=== PATIENT | male | born 1980 | race Hispanic/Latino ===

== ENCOUNTER 2019-09-14 17:13 | Emergency (ER) | payer OTHER, SELFPAY ==
[2019-09-14 17:39] VITALS: BP 120/78; PULSE 73; RESP 15; TEMP 36.4; O2SAT 99; BMI 27.1
--- NOTE | 2019-09-14 17:43 | DI.RAD.S_ITS ---
PROCEDURE: XR KNEE RT 3V INDICATIONS: atraumatic swelling right knee w/ swelling RLL TECHNIQUE: 3 views of the knee were acquired. COMPARISON: None. FINDINGS: Bones: No fractures or dislocations. No suspicious bony lesions. Mild narrowing of the medial joint space. Prominent prepatellar and superficial infrapatellar soft tissue swelling Soft tissues: No joint effusion. No suspicious soft tissue calcifications. IMPRESSION: Anterior soft tissue swelling. No fracture. If the patient's symptoms do not improve recommend followup radiographs in 10 days to assess for healing sclerosis/occult injury. Dictated by: Maninder Mcmahon M.D. on 09/14/2019 at 18:31 Approved by: Maninder Mcmahon M.D. on 09/14/2019 at 18:33
--- NOTE | 2019-09-14 18:07 | ED.EXTPRO ---
HPI - Extremity Problem General Chief complaint: Extremity Problem,Nontraumatic Stated complaint: RT LEG SWELLING Time Seen by Provider: 09/14/19 18:02 Source: patient Mode of arrival: Ambulatory Limitations: no limitations History of Present Illness HPI Narrative: 39-year-old male here for evaluation of pain in the front of his right knee. He states that at the end of last week he started noticing some redness and swelling and pain in the front portion of his right knee just below his kneecap on the right. No specific trauma. States that it did hurt for him to bend his knee. He did feel warm compared to the other side. States that his symptoms have improved somewhat since the onset. Related Data Previous Rx's Medication Instructions Recorded oxycodone-acetaminophen 5 mg-325 1 tab PO Q4-6H PRN #20 tab 03/18/18 mg tablet Allergies Allergy/AdvReac Type Severity Reaction Status Date / Time No Known Drug Allergies Allergy Verified 09/14/19 17:39 Review of Systems Constitutional Constitutional: Denies fever(s) Cardiovascular Cardiovascular: Denies chest pain and Denies dyspnea Respiratory Respiratory: Denies dyspnea Musculoskeletal Musculoskeletal: Denies tingling Comments: Right knee pain Integumentary/Breasts Comments: No redness around the right knee Neurologic Neurologic: Denies tingling and Denies paresthesias Hematologic/Lymphatic Hematologic/Lymphatic: Denies easy bleeding and Denies easy bruising Patient History Medical History History of removal of cyst (Resolved 09/2015) Surgical History No history of previous surgery (Resolved 09/21/15) Social History marital status: Smoking Status: Current every day smoker alcohol intake: current (1-2 A DAY ) Smoking Status: Current every day smoker alcohol intake frequency: 0-2 drinks per day Substance Use Type: does not use Exam Initial Vital Signs Initial Vital Signs: Vital Signs Temperature 97.6 F 09/14/19 17:39 Pulse Rate 73 09/14/19 17:39 Respiratory Rate 15 09/14/19 17:39 Blood Pressure 120/78 09/14/19 17:39 Pulse Oximetry 99 09/14/19 17:39 Const General: cooperative and comfortable Orientation: alert and oriented x3 Cardio Pulses: dorsalis pedis present on the right Skin Lesions: no lesions Rashes: no rashes Neuro General: alert and awake Cognition: normal cognition Speech: speech normal Gait: normal gait Extrem Other: Patient does have mild swelling over the inferior portion of the patella down to the tibial tuberosity. Also has some tenderness to palpation in this area. He is able to do a straight leg raise. Is able to flex and extend the knee. Right ankle is unremarkable. Right hip is under Psych Appearance: grossly normal and well kempt Course Orders Ordered: ED Orders 09/14/19 17:43 XR knee RT 3V Stat Vital Signs Vital signs: Vital Signs - 8 hr 09/14/19 17:39 Temperature 97.6 F Pulse Rate 73 Respiratory Rate 15 Blood Pressure 120/78 Pulse Oximetry 99 MDM - Extremity (Nontraumatic) Imaging Data XR knee: Radiologist's impression: [address] [address] XRay Report Signed Patient: Jese SánchezMR#: [id number] : 1980Acct:[id number] Age/Sex: 39 / MDate of Service: 09/14/19 Loc: ED Accession Number: [id number] Procedure: XR knee RT 3V Ordering Provider: Marjan Pardo D.O. PROCEDURE: XR KNEE RT 3V INDICATIONS: atraumatic swelling right knee w/ swelling RLL TECHNIQUE: 3 views of the knee were acquired. COMPARISON: None. FINDINGS: Bones: No fractures or dislocations. No suspicious bony lesions. Mild narrowing of the medial joint space. Prominent prepatellar and superficial infrapatellar soft tissue swelling Soft tissues: No joint effusion. No suspicious soft tissue calcifications. IMPRESSION: Anterior soft tissue swelling. No fracture. If the patient's symptoms do not improve recommend followup radiographs in 10 days to assess for healing sclerosis/occult injury. Dictated by: Maninder Mcmahon M.D. on 09/14/2019 at 18:31 Approved by: Maninder Mcmahon M.D. on 09/14/2019 at 18:33 [facility] Narrative Medical decision making narrative: Patient is neurovascularly intact. No fractures on the x-ray. Physical exam is not consistent with a septic joint. I do suspect that this is a bursitis. We did discuss anti-inflammatories and icing. Also discussed avoiding activities that make the symptoms worse. Discussed return precautions and follow-up instructions. He expressed understanding and agreement with plan. Discharge Plan Departure Patient Disposition: Home Clinical Impression: Bursitis Qualifiers: Bursitis location: knee Knee bursitis location: infrapatellar bursitis Laterality: right Qualified Code(s): M70.51 - Other bursitis of knee, right knee Discharge Date/Time: 09/14/19 18:35 Instructions: Bursitis Activity Restrictions/Additional Instructions: Continue to ice your knee. You can continue the anti-inflammatories like we discussed. Contact your primary provider for follow-up. Return to the emergency department for any new or worsening symptoms Prescriptions: No Action oxycodone-acetaminophen [Percocet] 5-325 mg tablet 1 tab PO Q4-6H PRN (Reason: pain) Qty: 20 RF: 0 Referrals: Angel Sol MD [Primary Care Provider] -
== END 2019-09-14 18:35 | disposition home or self-care (01) ==
PROVIDERS: Emergency Provider Emergency Medicine; Family Provider Family Medicine; PCP Family Medicine
DX: M70.51 Other bursitis of knee, right knee (principal)
CPT/HCPCS: 73562; 99282; 99283

== ENCOUNTER → 2020-09-12 11:38 | Outpatient (CLI) | payer OTHER, SELFPAY ==
[2020-09-12 12:19] LABS: COVID19 -Nasal RAPID POSITIVE (Negative)
== END ==
PROVIDERS: Family Provider Family Medicine; PCP Family Medicine; Visit Provider Physician Assistant
DX: U07.1 COVID-19 (principal)
CPT/HCPCS: 87635

== ENCOUNTER → 2021-02-15 15:41 | Outpatient (CLI) | payer OTHER, SELFPAY ==
[2021-02-15] MEDS: COVID-19 VACC #1, MRNA(MOD) 100 MCG/0.5 ML VIAL IM (15:51)
== END ==
PROVIDERS: Family Provider Family Medicine; PCP Family Medicine; Visit Provider Internal Medicine
DX: Z23 Encounter for immunization (principal)
CPT/HCPCS: 0011A; 91301

== ENCOUNTER → 2021-10-28 07:54 | Outpatient (CLI) | payer OTHER, SELFPAY ==
[2021-10-28 09:35] LABS: Alanine Aminotransferase 26 IU/L (<50); Albumin 4.3 g/dL (3.5-5.0); Albumin Globulin Ratio 1.6 (1.0-2.8); Alkaline Phosphatase 61 U/L (38-126); Aspartate Aminotransferase 33 IU/L (17-59); BUN Creatinine Ratio 13.6 (6-22); Bilirubin Total 0.7 mg/dL (0.2-1.3); Blood Urea Nitrogen 15 mg/dL (9-20); Calcium 9.3 mg/dL (8.4-10.2); Carbon Dioxide 29 mmol/L (22-32); Chloride 107 mmol/L (98-107); Cholesterol 239 mg/dL (140-199); Estimated Glomerular Filt Rate > 60.0 mL/min (>60); Globulin 2.7 g/dL (1.7-4.1); Glucose 104 mg/dL (70-100); HDL Cholesterol 49 mg/dL (40-60); HEMOLYSIS < 15 (0-50); LDL Cholesterol Calculated 173 mg/dL (<100); Sodium 140 mmol/L (137-145); Triglycerides 85 mg/dL (35-150)
== END ==
PROVIDERS: Family Provider Family Medicine; PCP Family Medicine; Referring Provider Family Medicine; Visit Provider Family Medicine
DX: Z13.9 Encounter for screening, unspecified (principal)
CPT/HCPCS: 36415; 80053; 80061

== ENCOUNTER 2023-10-08 15:05 | Emergency (ER) | payer OTHER, SELFPAY ==
[2023-10-08] VITALS (10 sets, daily range): BP systolic 122–143; BP diastolic 81–96; PULSE 75–100; RESP 15–22; TEMP 37.6; O2SAT 96–99; BMI 28.7
[2023-10-08 15:38] LABS: Add Manual Diff / Slide Review NO; Basophils Absolute Auto 0 /uL (0-100); Basophils Percent Auto 0.2 % (0-2); Eosinophils Absolute Auto 1300 /uL (0-450); Eosinophils Percent Auto 11.4 % (2-4); Hematocrit 45.3 % (41-53); Hemoglobin 16.2 g/dL (13.5-17.5); Lymphocytes Absolute Auto 1400 /uL (1100-4500); Lymphocytes Percent Auto 12.2 % (25-40); Mean Corpuscular HGB Conc 35.7 % (30-36); Mean Corpuscular Hemoglobin 32.1 PG (26-34); Mean Corpuscular Volume 90.1 fL (80-100); Monocytes Absolute Auto 500 /uL (0-900); Monocytes Percent Auto 4.6 % (3-14); Neutrophils Absolute Auto 8100 /uL (1500-7000); Neutrophils Percent Auto 71.6 % (50-75); Platelet Count 196 X10^3/uL (150-400); Red Blood Cell Count 5.03 X10^6/uL (4.5-5.9); Red Cell Distribution Width 12.6 % (11.6-14.8); White Blood Cell Count 11.3 X10^3/uL (4.5-11.0)
[2023-10-08 15:49] LABS: Alanine Aminotransferase 40 IU/L (<50); Albumin 4.5 g/dL (3.5-5.0); Albumin Globulin Ratio 1.3 (1.0-2.8); Alkaline Phosphatase 82 U/L (38-126); BUN Creatinine Ratio 10.3 (6-22); Bilirubin Total 0.8 mg/dL (0.2-1.3); Blood Urea Nitrogen 14 mg/dL (9-20); Calcium 9.5 mg/dL (8.4-10.2); Carbon Dioxide 26 mmol/L (22-32); Chloride 99 mmol/L (98-107); Estimated Glomerular Filt Rate > 60 mL/min (>60); Globulin 3.6 g/dL (1.7-4.1); Glucose 108 mg/dL (70-100); HEMOLYSIS < 15 (0-50); Lipase 86 U/L (23-300); Potassium 3.6 mmol/L (3.4-5.1); Sodium 136 mmol/L (137-145); Total Protein 8.1 g/dL (6.3-8.2)
[2023-10-08 16:07] LABS: Troponin I < 0.012 ng/mL (0.01-0.034)
--- NOTE | 2023-10-08 16:49 | ED_ITS ---
HPI - Abdominal Pain General Chief Complaint: Abdominal Pain Stated Complaint: pain, lt side upper abd pain Time Seen by Provider: 10/08/23 15:40 Source: patient Mode of arrival: Ambulatory History of Present Illness HPI narrative: Patient is a 43-year-old healthy male who presents today with abdominal pain diarrhea nausea and vomiting. He reports that for the last 1-2 weeks he has had some abdominal cramping he has had at least 4-5 episodes of nonbloody diarrhea daily. He says whenever he eats he vomits. He is able to drink some water but it goes right through him. He has not dizzy or lightheaded. He started moving more today and had increased pain. No real fever or chills. He has not traveled anywhere he is on city water recent antibiotics no sick contacts Related Data Previous Rx's Medication Instructions Recorded azithromycin 500 mg tablet 500 mg PO DAILY 3 days #3 tabs 10/08/23 ondansetron 4 mg disintegrating 4 mg PO Q8H PRN nausea and 10/08/23 tablet vomiting #20 tabs Allergies Allergy/AdvReac Type Severity Reaction Status Date / Time No Known Drug Allergies Allergy Verified 08/24/21 10:01 Review of Systems Review of Systems ROS Unobtainable: All systems reviewed & are unremarkable except as noted in HPI and below Patient History Medical History Tobacco abuse History of removal of cyst (09/2015) Surgical History No history of previous surgery (09/21/15) Family History Father Age: 65 Heart disease Grandfather Heart disease Grandmother No problems noted. Social History marital status: Smoking Status: Current every day smoker alcohol intake: current Smoking Status: Current every day smoker alcohol intake frequency: 0-2 drinks per day Substance Use Type: does not use Exam Initial Vital Signs Initial Vital Signs: Vital Signs Temperature 99.6 F 10/08/23 15:18 Pulse Rate 83 10/08/23 15:18 Respiratory Rate 22 10/08/23 15:18 Blood Pressure 143/96 H 10/08/23 15:18 Pulse Oximetry 98 10/08/23 15:18 Oxygen Delivery Method Room Air 10/08/23 15:18 GENERAL: Alert well-appearing 43-year-old male and in no acute distress. HEENT: Head atraumatic,EOMI, pupils reactive, face symmetric, moist mucous membranes CARDIOVASCULAR: Regular rate and rhythm without murmurs, rubs or gallops. RESPIRATORY: Breath sounds equal bilaterally, no wheezes rales or rhonchi. ABDOMEN: Soft, minimal tenderness no guarding no rebound : No CVA tenderness EXTREMITIES: Normal range of motion, no clubbing or edema. Neurovascularly intact NEUROLOGICAL: Alert and oriented x4.Normal gait and speech. SKIN: Warm, dry, no laceration, no petechiae, no rashes or lesions. Course Orders Ordered: ED Orders 10/08/23 15:22 EKG-12 Lead Stat 10/08/23 15:29 Complete Blood Count AUTO DIFF Stat Comprehensive Metabolic Panel Stat Lipase Stat Trop I [Troponin I] Stat 10/08/23 16:39 GI Panel (Film Array) Stat Ondansetron HCl (Ondansetron 4 Mg Odt) 4 mg PO NOW PRN PRN Reason: Nausea And Vomiting Ondansetron HCl (Ondansetron 4 Mg/2 Ml Inj) 4 mg IV NOW PRN PRN Reason: Nausea And Vomiting Last Admin: 10/08/23 17:01 Dose: 4 mg Documented By: ION Discontinued Medications Sodium Chloride (Normal Saline 0.9%) 1,000 mls @ 1,000 mls/hr IV BOLUS ONE Stop: 10/08/23 17:48 Last Infusion: 10/08/23 17:58 Dose: Infused Documented By: Admin: 10/08/23 16:58 Dose: 1,000 mls/hr Documented By: ION Vital Signs Vital signs: Vital Signs - 8 hr 10/08/23 15:18 10/08/23 15:35 10/08/23 15:36 Temperature 99.6 F Pulse Rate 83 90 89 Respiratory Rate 22 20 17 Blood Pressure 143/96 H Pulse Oximetry 98 98 98 Oxygen Delivery Method Room Air 10/08/23 15:36 10/08/23 16:00 10/08/23 16:00 Temperature Pulse Rate 87 Respiratory Rate 15 Blood Pressure 122/83 124/84 Pulse Oximetry 97 Oxygen Delivery Method 10/08/23 16:40 10/08/23 16:43 10/08/23 16:43 Temperature Pulse Rate 100 H 81 Respiratory Rate 16 18 Blood Pressure 138/82 Pulse Oximetry 99 Oxygen Delivery Method 10/08/23 17:00 10/08/23 17:00 10/08/23 17:30 Temperature Pulse Rate 82 Respiratory Rate 16 Blood Pressure 126/87 130/81 Pulse Oximetry 98 Oxygen Delivery Method 10/08/23 18:00 10/08/23 18:00 Temperature Pulse Rate 75 Respiratory Rate 18 Blood Pressure 130/81 Pulse Oximetry 96 Oxygen Delivery Method Room Air MDM - Abdominal Pain Lab Data 10/08/23 15:29 10/08/23 15:29 Labs: Lab Results 10/08/23 10/08/23 Range/Units 15:29 16:39 WBC 11.3 H (4.5-11.0) X10^3/uL RBC 5.03 (4.5-5.9) X10^6/uL Hgb 16.2 (13.5-17.5) g/dL Hct 45.3 (41-53) % MCV 90.1 (80-100) fL MCH 32.1 (26-34) PG MCHC 35.7 (30-36) % RDW 12.6 (11.6-14.8) % Plt Count 196 (150-400) X10^3/uL Neut % (Auto) 71.6 (50-75) % Lymph % (Auto) 12.2 L (25-40) % [place] % (Auto) 4.6 (3-14) % Eos % (Auto) 11.4 H (2-4) % Baso % (Auto) 0.2 (0-2) % Neut # (Auto) 8100 H (7540-1552) /uL Lymph # (Auto) 1400 (8146-5650) /uL [place] # (Auto) 500 (0-900) /uL Eos # (Auto) 1300 H (0-450) /uL Baso # (Auto) 0 (0-100) /uL Sodium 136 L (137-145) mmol/L Potassium 3.6 (3.4-5.1) mmol/L Chloride 99 (98-107) mmol/L Carbon Dioxide 26 (22-32) mmol/L BUN 14 (9-20) mg/dL Creatinine 1.36 H (0.66-1.25) mg/dL Estimated GFR > 60 (>60) mL/min BUN/Creatinine Ratio 10.3 (6-22) Glucose 108 H (70-100) mg/dL Calcium 9.5 (8.4-10.2) mg/dL Total Bilirubin 0.8 (0.2-1.3) mg/dL AST TNP ALT 40 (<50) IU/L Alkaline Phosphatase 82 (38-126) U/L Troponin I < 0.012 (0.01-0.034) ng/mL Total Protein 8.1 (6.3-8.2) g/dL Albumin 4.5 (3.5-5.0) g/dL Globulin 3.6 (1.7-4.1) g/dL Albumin/Globulin Ratio 1.3 (1.0-2.8) Lipase 86 (23-300) U/L Stl C. cayetanensis PCR Not detected (Not Detect) Stool Rotavirus (PCR) Not detected (Not Detect) Stool Adenovirus (PCR) Not detected (Not Detect) Stool Astrovirus (PCR) Not detected (Not Detect) Stool Cryptosporidium PCR Not detected (Not Detect) Stl E.coli Shiga Tox PCR Not detected (Not Detect) St Sh/Enteroin Ecoli PCR Not detected (Not Detect) Stl Enterotoxigenic E PCR Not detected (Not Detect) Stool EPEC (PCR) Not detected (Not Detect) Stl E. histolytica PCR Not detected (Not Detect) Stool Giardia Lamblia PCR Not detected (Not Detect) Stool Sapovirus (PCR) Not detected (Not Detect) Stl P. shigelloides PCR Not detected (Not Detect) St Y.enterocolitica PCR Not detected (Not Detect) Stool Vibrio (PCR) Not detected (Not Detect) Stl Vibrio cholerae PCR Not detected (Not Detect) Stl Enteroaggr Ecoli PCR Not detected (Not Detect) Stl Norovirus GI/GII PCR Not detected (Not Detect) Campylobacter (PCR) Not detected (Not Detect) C. difficile Tox (PCR) Not detected (Not Detect) Salmonella (PCR) Not detected (Not Detect) Point of care testing: Urine Dip Bedside Urine Glucose Negative Bedside Urine Bilirubin - Negative Bedside Urine Ketone - Negative Urine Specific [place] 1.030 Bedside Urine Occult Blood - Negative Bedside Urine pH 6.0 Bedside Urine Protein - Negative Bedside Urine Urobilinogen - Negative Bedside Urine Nitrite - Negative Bedside Urine Leukocytes - Negative Esterase ECG Data Interpretation: Sinus rhythm rate [address] changes do not agree with computer of atrial flutter MDM Narrative Medical decision making narrative: Patient 43-year-old male presenting today with ongoing abdominal pain and diarrhea with nausea vomiting. Symptoms are consistent with a gastroenteritis been ongoing for about 7 days. Blood work has been reviewed; she has mild leukocytosis 11.3, no anemia, he does have some mild GERARDO with creatinine of 1.36 previously 1.1. Sodium 136 no other electrolyte abnormalities GI panel negative Symptoms are most consistent with a gastroenteritis going on for about 7 days. He is afebrile in the ED with mild leukocytosis. Home put him on course antibiotics to see if it improves. He has given a L of IV fluids as well. Encourage p.o. intake will give Zofran as well. At this time abdominal pain is likely due to cramping and gastroenteritis no need for imaging. Abdomen is reexamined and is soft. Discharge Plan Departure Patient Disposition: Home Clinical Impression: Gastroenteritis Instructions: DI for Viral Gastroenteritis -- Adult Activity Restrictions/Additional Instructions: *You have been diagnosed with gastroenteritis *What to do: Increase fluid intake. I hope you feel better soon *Continue to take medications as directed Zofran 4 mg every 8 hours if needed for nausea or vomiting Azithromycin 500 mg once a day for 3 days *Follow up with your primary care provider in 2-3 days or call [phone] *Return to ER if you should have increasing abdominal pain dizziness lightheadedness worsening diarrhea not able to tolerate fluids or any new, worsening or concerning symptoms Prescriptions: New azithromycin 500 mg tablet 500 mg PO DAILY 3 Days Qty: 3 0RF Rx Instructions: start on day 2 of therapy ondansetron 4 mg tablet,disintegrating 4 mg PO Q8H PRN (Reason: nausea and vomiting) Qty: 20 0RF Referrals: Cher Dodd MD [Primary Care Provider] - Stand Alone Forms: Patient Portal/API
[2023-10-08] MEDS: SODIUM CHLORIDE 0.9% 1,000 ML 1000 ML IV (16:58)
[2023-10-08] MEDS: ONDANSETRON 4 MG/2 ML INJ IV (17:01)
[2023-10-08 18:05] LABS: Adenovirus F 40/41 Not Detected (Not Detect); Astrovirus Not Detected (Not Detect); Campylobacter Not Detected (Not Detect); Clostridium difficile toxin AB Not Detected (Not Detect); Cryptosporidium Not Detected (Not Detect); Cyclospora cayetanensis Not Detected (Not Detect); Entamoeba histolytica Not Detected (Not Detect); Enteroaggregative E.coli Not Detected (Not Detect); Enteropathogenic E.coli Not Detected (Not Detect); Enterotoxigenic E.coli It/st Not Detected (Not Detect); Giardia lamblia Not Detected (Not Detect); Norovirus GI/GII Not Detected (Not Detect); Plesiomonsa shigelloides Not Detected (Not Detect); Rotavirus A Not Detected (Not Detect); Salmonella Not Detected (Not Detect); Sapovirus Not Detected (Not Detect); Shiga-like toxin-prod E.coli Not Detected (Not Detect); Shigella/Enteroinvasive E.coli Not Detected (Not Detect); Vibrio Not Detected (Not Detect); Vibrio cholerae Not Detected (Not Detect); Yersinia enterocolitica Not Detected (Not Detect)
[2023-10-11 16:34] LABS: Aspartate Aminotransferase 39 IU/L (17-59)
== END 2023-10-08 18:32 | disposition home or self-care (01) ==
PROVIDERS: Emergency Provider Emergency Medicine; Family Provider Family Medicine; PCP Family Medicine
DX: K52.9 Noninfective gastroenteritis and colitis, unspecified (principal); R03.0 Elevated blood-pressure reading, without diagnosis of hypertension
CPT/HCPCS: 36415; 80053; 81003; 83690; 84484; 85025; 87507; 93005; 96361; 96374; 99284; J2405

== ENCOUNTER 2024-10-06 20:18 | Emergency (ER) | payer OTHER, SELFPAY ==
[2024-10-06 20:55] VITALS: BP 126/76; PULSE 85; RESP 18; TEMP 37.3; O2SAT 98; BMI 28.7
--- NOTE | 2024-10-07 02:51 | ED.RECABL ---
HPI - Recheck/Abnormal Lab/Rx General Chief Complaint: Recheck/Abnormal Lab/Rx Stated Complaint: thinks hemorrhoid Time Seen by Provider: 10/07/24 02:51 Source: patient and old records reviewed Mode of arrival: Ambulatory Limitations: no limitations History of Present Illness HPI narrative: 44-year-old male presents with complaint of rectal pain. Patient states symptoms started around 1227 started having discomfort and pressure noticed a bump which he states was hard has since gotten smaller. He states he was having diarrhea Saturday and Saturday with a little bit of bright red blood and then had a more firm bowel movement with ne today. Patient did not have a suppository which he tried with lidocaine, tribenoside and excipient from [place] where he was traveling. They have been helpful. Has not taken anything for constipation. Denies fevers. No intra abdominal pain. Patient states has been able to urinate but does more difficult when seated. He was able to urinate easily when standing. Does not have any pain no dysuria urgency or frequency with urination. Patient states no daily medications denies any prior surgeries. No known drug allergies. Related Data Previous Rx's Medication Instructions Recorded ondansetron 4 mg disintegrating 4 mg PO Q8H PRN nausea and 10/08/23 tablet vomiting #20 tabs amoxicillin 875 mg-potassium 1 tab PO BID #14 tabs 10/07/24 clavulanate 125 mg tablet meloxicam 7.5 mg tablet 7.5 mg PO BID PRN pain #10 tabs 10/07/24 Allergies Allergy/AdvReac Type Severity Reaction Status Date / Time No Known Drug Allergies Allergy Verified 10/06/24 20:55 Review of Systems Review of Systems ROS Unobtainable: All systems reviewed & are unremarkable except as noted in HPI and below Patient History Medical History Tobacco abuse History of removal of cyst (09/2015) Surgical History No history of previous surgery (09/21/15) Family History Father Age: 66 Heart disease Grandfather Heart disease Grandmother No problems noted. Social History marital status: Smoking Status: Current every day smoker alcohol intake: current Smoking Status: Current every day smoker alcohol intake frequency: 0-2 drinks per day Exam Narrative Exam Narrative: GENERAL: Alert and oriented x three, male in mild distress HEENT: Head normocephalic, atraumatic, EOMI, pupils reactive, face symmetric, moist mucous membranes NECK: Supple, full range of motion CARDIOVASCULAR: Regular rate and rhythm without murmurs, rubs or gallops. RESPIRATORY: Breath sounds equal bilaterally, no wheezes rales or rhonchi. ABDOMEN: Soft, nontender. Normoactive bowel sounds all 4 quadrants. No guarding or rebound, rigidity, no mass, on exam external rectum appears normal but does have a small area of fullness at the 12 o'clock position, there has no induration or fluctuance. Digital rectal exam patient is nontender with no palpable hemorrhoids or changes. Prostate is nontender without any bogginess. Chaperoned by GERALDINE Shrestha. : No CVA tenderness EXTREMITIES: Normal range of motion, no clubbing or edema. Neurovascularly intact NEUROLOGICAL: Cranial nerves II through XII grossly intact. Moving all extremities SKIN: Warm, dry, no petechiae, no rashes or lesions. Initial Vital Signs Initial Vital Signs: Vital Signs Temperature 99.2 F 10/06/24 20:55 Pulse Rate 85 10/06/24 20:55 Respiratory Rate 18 10/06/24 20:55 Blood Pressure 126/76 10/06/24 20:55 Pulse Oximetry 98 10/06/24 20:55 Oxygen Delivery Method Room Air 10/06/24 20:55 Course Orders Ordered: Discontinued Medications Amoxicillin/Clavulanate Potassium (Amoxicillin/Clav 875/125 Mg) 1 tab PO NOW ONE Stop: 10/07/24 03:41 Last Admin: 10/07/24 03:45 Dose: 1 tab Documented By: YURI Ibuprofen (Ibuprofen 400 Mg Tablet) 800 mg PO NOW ONE Stop: 10/07/24 03:41 Last Admin: 10/07/24 03:45 Dose: 800 mg Documented By: YURI Vital Signs Vital signs: Vital Signs - 8 hr 10/07/24 03:53 Temperature 98.2 F Pulse Rate 66 Respiratory Rate 17 Blood Pressure 131/85 Pulse Oximetry 98 Oxygen Delivery Method Room Air MDM - Recheck/Abnormal Lab/Rx MDM Narrative Medical decision making narrative: 44-year-old male states symptoms are actually improving the lump he has actually been getting a little bit smaller he is little bit tender externally but no hemorrhoid appreciated. Suspect patient had little bit of a cyst or abscess starting to develop it is quite small so patient was started on an oral antibiotic. Recommended continue with stool softeners short course of pain medication with return precautions. Discharge Plan Departure Patient Disposition: Home Clinical Impression: Pain, rectal Instructions: Anal Abscess Activity Restrictions/Additional Instructions: I suspect you are trying to develop an abscess close to the rectal area. Please take antibiotics until completed. Usually takes about 24-48 hours for antibiotics to be completely effective. I would recommend using warm compresses or hot baths or sitz baths at the affected area. You can use acetaminophen up to a 1000 mg every 6 hours, you can take meloxicam 1 tablet every 12 hours as needed for pain. Do not take NSAIDs, ibuprofen or Aleve with this medication. Can continue to use the suppositories if they are helpful. Prescription was sent to [facility] in [place]. Please return for fevers, rapidly worsening pain, new abdominal back or flank pain, if you are having black or bloody stools, unable to urinate or other new or concerning changes. Prescriptions: New amoxicillin-pot clavulanate 875-125 mg tablet 1 tab PO BID Qty: 14 0RF meloxicam 7.5 mg tablet 7.5 mg PO BID PRN (Reason: pain) Qty: 10 0RF No Action ondansetron 4 mg tablet,disintegrating 4 mg PO Q8H PRN (Reason: nausea and vomiting) Qty: 20 0RF Referrals: Cher Dodd MD [Primary Care Provider] - Stand Alone Forms: Patient Portal/API/Survey
[2024-10-07] MEDS: AMOXICILLIN/CLAV 875/125 MG 1 TAB PO (03:45)
[2024-10-07] MEDS: IBUPROFEN 400 MG TABLET 800 MG PO (03:45)
[2024-10-07 03:53] VITALS: BP 131/85; PULSE 66; RESP 17; TEMP 36.8; O2SAT 98
== END 2024-10-07 03:54 | disposition home or self-care (01) ==
PROVIDERS: Emergency Provider Emergency Medicine; Family Provider Family Medicine; PCP Family Medicine
DX: K62.89 Other specified diseases of anus and rectum (principal)
CPT/HCPCS: 99283